=== PATIENT | female | born 1975 | race Caucasian/White ===

== ENCOUNTER 2018-06-08 13:20 | Outpatient (CLI) | payer MEDICAID ==
--- NOTE | 2018-06-08 15:41 | MMO ---
BILATERAL SCREENING MAMMOGRAMS: 06/08/18 HISTORY: 42-year-old female patient presenting for screening mammography. The study is interpreted with the assistance of computer aided detection. FINDINGS: There is a heterogeneous dense parenchymal pattern which may lower the sensitivity of mammography. Pu nctate benign appearing calcifications are again seen in each breast. There is a stable intramammary lymph node again present in the upper outer left breast. There is an oval shaped 1.6 cm mass seen wit hin the posterior depth upper outer left breast. No additional dominant mass or suspicious grouping o f microcalcifications are seen in either breast. IMPRESSION: BIRADS 0: Incomplete: Need Additional Imaging Evaluation and/or Prior Mammograms for Comparison. Spot magnification compression CC and MLO views left breast in addition to 90 degree mediolateral vi ew are recommended for further evaluation. Ultrasound should also be scheduled at this time if mariajose rosenthal. POS: BEENA
== END 2018-06-08 13:21 | disposition home or self-care (01) ==
LOC: SCSMAMMO 13:20
PROVIDERS: ATTEND Nurse Practitioner Women's Health
DX: Z12.31 Encounter for screening mammogram for malignant neoplasm of breast (principal)
CPT/HCPCS: 77067

== ENCOUNTER 2018-06-15 09:44 | Outpatient (CLI) | payer MEDICAID ==
--- NOTE | 2018-06-15 11:14 | ULT ---
LEFT BREAST ULTRASOUND: History: Abnormal mammogram. FINDINGS: Sonographic evaluation of the upper outer left breast demonstrates an 1.5 x 0.6 x 1.5 cm cyst with th in internal septation between the 2:00 and 3:00 positions corresponding to the finding on the mammogr am. IMPRESSION: BIRADS category 2 - benign findings. Routine to mammographic screening. POS: OFF
== END 2018-06-15 09:45 | disposition home or self-care (01) ==
LOC: BICMAMMO 09:44
PROVIDERS: ATTEND Nurse Practitioner Women's Health
DX: R92.8 Other abnormal and inconclusive findings on diagnostic imaging of breast (principal); Z85.820 Personal history of malignant melanoma of skin
CPT/HCPCS: G0279